=== PATIENT | female | born 1945 | race Caucasian/White ===

== ENCOUNTER → 2020-11-15 | Outpatient (CLI) | payer OTHER ==
[~2020-11-15] VITALS: Ht 162.6 cm; Wt 61.2 kg
[~2020-11-15] MED LIST: CETIRIZINE HCL10 M1 PO; DICYCLOMINE HCL20 MG PO; ESCITALOPRA5 MG/5 ML PO; LISINOPRIL10 MG PO; LORAZEPAM 0.50.5 MG PO; MINIVELLE1 EAC1 PO; MONTELUKAST SODI4 M1 PO; NAPROXEN DELAY500 M1 PO; NORVASC5 MG PO; PROBIOTIC1 EAC7 PO; SUPER THERAVIT1 EACH PO; TRAZODONE HCL50 MG PO; VENTOLIN HFA INH8 GM INH; VITAMIN D310 MC2 PO; ZOFRAN4 MG PO
[2020-11-15 12:45] VITALS: BP 150/57
== END | disposition home or self-care (01) ==
LOC: CATH 10:54
PROVIDERS: ATTEND Nuclear Medicine Nuclear Cardiology
DX: I65.23 Occlusion and stenosis of bilateral carotid arteries (principal); I70.1 Atherosclerosis of renal artery; I10 Essential (primary) hypertension; I73.9 Peripheral vascular disease, unspecified; E78.5 Hyperlipidemia, unspecified; Z98.890 Other specified postprocedural states; Z79.899 Other long term (current) drug therapy; Z87.891 Personal history of nicotine dependence

== ENCOUNTER → 2021-06-08 | Outpatient (CLI) | payer OTHER | LOC: SJCVCIMAG 05-18 16:38 | PROVIDERS: ATTEND Internal Medicine Cardiovascular Disease | DX: I65.23 Occlusion and stenosis of bilateral carotid arteries (principal); I77.9 Disorder of arteries and arterioles, unspecified; E78.00 Pure hypercholesterolemia, unspecified; I10 Essential (primary) hypertension; C56.9 Malignant neoplasm of unspecified ovary; R00.1 Bradycardia, unspecified; R42 Dizziness and giddiness; G20 Parkinson's disease; Z82.49 Family history of ischemic heart disease and other diseases of the circulatory system; Z72.89 Other problems related to lifestyle; Z87.891 Personal history of nicotine dependence; Z79.899 Other long term (current) drug therapy ==